=== PATIENT | female | born 1975 ===

== ENCOUNTER 2017-11-24 08:07 | Outpatient (CLI) | payer OTHER ==
--- NOTE | 2017-11-24 16:19 | Mammography Report ---
BILATERAL DIGITAL SCREENING MAMMOGRAM WITH CAD:11/24/17 CLINICAL: Baseline screening. FINDINGS: The breasts are mostly fatty.An oval circumscribed mixed density mass in the upper-outer left breast has a significant fatty component with a very thin wall. It measures 7.4 x 4.0 x 6.0 cm. No architectural distortion or suspicious calcifications. The right breast is negative. IMPRESSION: A 7.4 cm left breast mass requiring further workup. BI-RADS CATEGORY: 0 -- Needs Additional Imaging RECOMMENDATION: Recall for a left breast ultrasound. ACR BI-RADS MAMMOGRAPHIC CODES: 0 = Needs additional imaging evaluation; 1 = Negative; 2 = Benign; 3 = Probably benign; 4 = Suspicious; 5 = Malignant; 6 = Known biopsy-proven malignancy COMMENT: 1. Dense breast tissue, i.e., adenosis, fibrocystic changes, etc., may obscure an underlying neoplasm. 2. Approximately 10% of cancers are not detected with mammography. 3. A negative mammography report should not delay biopsy if a clinically suspicious mass is present.
== END 2017-11-24 08:08 | disposition home or self-care (01) ==
LOC: SPVWC 08:07
PROVIDERS: ATTEND Hospitalist
DX: Z12.31 Encounter for screening mammogram for malignant neoplasm of breast (principal)
CPT/HCPCS: 77067

== ENCOUNTER 2018-01-11 13:54 | Outpatient (CLI) | payer OTHER ==
--- NOTE | 2018-01-11 15:48 | Ultrasound Report ---
LEFT BREAST ULTRASOUND: 01/11/18 13:54:00 CLINICAL: Mass on screening mammogram. COMPARISON: 11/24/17 mammogram. FINDINGS: Ultrasoundof the upper outer left breast was performed and demonstrated a heterogeneous solid mass with a lobular contour at 3 o'clock 18 cm from the nipple. It measures at least 4 x 2 x 2.3 cm and corresponds to the mammographic mass. The mammographic characteristics are typical of a benign hamartoma with significant fatty component in the ultrasound appearance is compatible. No suspicious finding. A benign intramammary lymph node at 3 o'clock 18 cm from the nipple measures 1.0 x 0.6 x 0.7 cm. IMPRESSION: A benign hamartoma of the left breast at 3 o'clock 18 cm from the nipple. The mammographic measurements of 7.4 x 4.0 x 6.0 cm are more reliable than the ultrasound measurements. BI-RADS 2 - - Benign RECOMMENDATION: Clinical followup and routine mammographic screening in one year.
== END 2018-01-11 13:55 | disposition home or self-care (01) ==
LOC: SPVWC 13:54
PROVIDERS: ATTEND Hospitalist
DX: N63.21 Unspecified lump in the left breast, upper outer quadrant (principal); Q85.8 Other phakomatoses, not elsewhere classified